=== PATIENT | male | born 1995 | race Caucasian/White ===

== ENCOUNTER 2020-09-03 06:39 | Emergency (ER) | payer BC, SELFPAY ==
[2020-09-03 06:44] VITALS: PULSE 89; RESP 16; TEMP 37.4; O2SAT 98; BMI 32.5
--- NOTE | 2020-09-03 06:51 | W.ED.COVID ---
HPI - COVID General: Chief Complaint: COVID symptoms Stated Complaint: Slight SOB/Body Aches/Headache/Wants to be Tested Time Seen by Provider: 09/03/20 06:45 Source: patient Mode of arrival: ambulatory Limitations: no limitations Triage information: Has fever, cough or shortness of breath. 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 He has been exposed to Covid by coworkers and patients. He is concerned he may have Covid. He has no hypoxia. Denies any vomiting or diarrhea. COVID 19 common symptoms: positive chills and body aches; negative fever(s), dyspnea, headache(s), throat pain, nausea, vomiting or diarrhea COVID 19 other sytmptoms: negative chest pain COVID Results: No Data to Display Review of Systems Const: Reports: chills and body aches; Denies: fever(s) or change in appetite Eyes: Denies: blurry vision or eye discomfort ENMT: Denies: throat pain or dental pain Card: Denies: chest pain Resp: Denies: dyspnea GI: Denies: abdominal pain, nausea, vomiting or diarrhea : Denies: dysuria Musc: Denies: neck pain or back pain Skin/Breast: Denies: rash Neuro: Denies: headache(s) Psych: Denies: depression James/Lymph: Denies: easy bruising All/Imm: Denies: urticaria Physical Exam Const: COMMON NORMALS: no acute distress, patient oriented x3 and healthy appearing HENMT: COMMON NORMALS: normocephalic and atraumatic HEAD & SCALP: normocephalic and atraumatic Eye: COMMON NORMALS: Equal, round and reactive pupils present and EOMs intact bilaterally PUPIL: Yes Equal, round and reactive pupils present Neck/C-Spine: COMMON NORMALS: full ROM and supple Chest: COMMONS NORMALS: normal inspection of the chest and normal palpation of entire chest wall Resp: COMMON NORMALS: normal respiratory effort, No retractions, No use of accessory muscles and clear to auscultation bilaterally AUSCULTATION: clear to auscultation bilaterally Cardio: COMMON NORMALS: regular rate, regular rhythm and No murmurs present (Cardio) RATE: regular rate RHYTHM: regular rhythm GI: COMMON NORMALS: Normal to inspection, nondistended, normoactive bowel sounds present, Soft to palpation, non-tender and no masses PALPATION: Yes Soft to palpation Extremity: COMMON NORMALS: normal to inspection and full ROM Neuro: COMMON NORMALS: patient oriented x3, moves all extremities and no focal motor deficits Psych: COMMON NORMALS: mental status grossly normal, Normal thought process present and cooperative THOUGHT PROCESS: Normal thought process present Skin: COMMON NORMALS: no rashes or lesions noted and no wounds GENERAL SKIN EXAM: no rashes or lesions noted Course Vital Signs: Vital signs: Vital Signs Temperature 99.4 F 09/03/20 06:44 Pulse Rate 89 09/03/20 06:44 Respiratory Rate 16 09/03/20 06:44 Pulse Oximetry 98 09/03/20 06:44 MDM - COVID MDM Narrative: Medical decision making narrative: Patient presents with cough fever body aches. 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 We will do a PTC. Is stable for discharge and is to quarantine until he has results. COVID Results: No Data to Display Discharge Plan Discharge Patient Disposition: Home Clinical Impression: Suspected severe acute respiratory syndrome coronavirus 2 (SARS-CoV-2) infection, Suspected 2019-nCoV infection Condition: Stable Discharge Orders: Discharge ED (Routine); Ordered 09/03/20 Ordered By: Thalia Garcia Referrals: Dyllan Olson MD [Primary Care Provider] - Discharge Diet: Advance as tolerated Discharge Activity: Resume usual activity Patient Instructions: Upper Respiratory Infection (ED) Coding Level of Care Code ED [employer] for Ciera Garcia
[2020-09-03 07:03] VITALS: PULSE 86; RESP 16; O2SAT 99
[2020-09-07 16:30] LABS: Coronavirus Lab Test PTC Negative
== END 2020-09-03 07:05 | disposition home or self-care (01) ==
LOC: ER 06:59
PROVIDERS: Emergency Provider Emergency Medicine; PCP Family Medicine
DX: Z20.828 Contact with and (suspected) exposure to other viral communicable diseases (principal)
CPT/HCPCS: 12345; 87635; 99281

== ENCOUNTER 2023-11-22 13:30 | Outpatient (CLI) | payer OTHER, SELFPAY ==
--- NOTE | 2023-11-22 13:37 | CT_ITS ---
WS: [id number] CT chest w con* [id number] HISTORY: PNEUMONIA TECHNIQUE: Axial imaging performed through the thorax. Coronal and sagittal reformats are submitted. All CT scans at [facility] use at least one of these dose optimization techniques: automated exposure control; mA and/or kV adjustment per patient size (includes targeted exams where dose is mat ched to clinical indication); or iterative reconstruction. CONTRAST: Omnipaque 350; 100 mL IV. DLP: 613.90 mGy.cm COMPARISON: None available. Lungs and central airway: Normal. Pleura: Normal. No pleural effusion. Heart and pericardium: Normal size heart with no pericardial effusion. Mediastinum and isidro: RIGHT suprahilar lymph node measures 10.7 mm. There are a few additional small lymph nodes. There is a soft tissue mass in the anterior mediastinum abutting the aorta and pulmonary artery. This is the most typical appearance for thymic tissue. It at this age thymic tissue has usua lly resolved. Transverse diameter of the soft tissue mass is 3.1 cm x 2.4 cm anterior posterior. Thym ic tissue extends over a length of 4.6 cm. Vessels: Artifact of the pulmonary artery. Normal size aorta. Chest wall and lower neck: No soft tissue masses. Upper abdomen: Normal. Osseous structures: No destructive process. IMPRESSION: 1. No pneumonia. 2. Prevascular, anterior mediastinal mass measures 3.1 x 2.4 cm and extends over a length of 4.6 cm. 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 This may be residual normal thymic tissue or rebound thymus. This is larger than expected for patient of this age and slightly more lobulated. No additional abnormali ties identified. Recommend follow-up chest CT in 3 months with IV contrast. PET/CT would provide shayla tional information also concerning the thymus. 3. Indeterminate RIGHT hilar lymph node 10.7 mm.
[2023-11-22] MEDS: iohexol 350 mg/mL 100 mL Btl IV (13:56)
== END 2023-11-22 13:31 | disposition home or self-care (01) ==
LOC: RAD 13:30
PROVIDERS: Visit Provider Family Medicine
DX: R22.2 Localized swelling, mass and lump, trunk (principal)
CPT/HCPCS: 71260; Q9967

== ENCOUNTER 2024-03-14 14:46 | Outpatient (CLI) | payer OTHER, SELFPAY ==
--- NOTE | 2024-03-14 14:50 | CT_ITS ---
WS: [id number] CT chest w con* [id number] HISTORY: MEDIASTINAL MASS TECHNIQUE: Axial imaging performed through the thorax. Coronal and sagittal reformats are submitted. All CT scans at [facility] use at least one of these dose optimization techniques: automated exposure control; mA and/or kV adjustment per patient size (includes targeted exams where dose is mat ched to clinical indication); or iterative reconstruction. CONTRAST: Omnipaque 350; 100 mL IV. DLP: 644.34 mGy.cm COMPARISON: 11/22/2023 Lungs and central airway: Lungs are clear and well aerated. No pulmonary nodule or pneumonia. Pleura: Normal. No pleural effusion. Heart and pericardium: Normal size heart with no pericardial effusion. Mediastinum and isidro: Reidentified is the anterior mediastinal mass which is conforming to the space. Mass is triangular shaped measuring 2.8 x 2.2 cm and extends over a length of 4.8 cm. Similar in my earance to the prior study. No increase in size. This is most consistent with thymic tissue. No addit ional abnormalities. There is no lymphadenopathy. Vessels: Normal size aortic and pulmonary artery. No coronary artery calcifications. Chest wall and lower neck: No soft tissue masses. Upper abdomen: Normal. Osseous structures: No destructive process. CT/CT chest w con* [id number] IMPRESSION: 1. Stable previous vascular anterior mediastinal mass measuring 2.8 x 2.2 x 4. 8 cm. Not significantly increased in size since the prior study. This is most c onsistent with normal thymic tissue. 2. No mediastinal or hilar adenopathy.
== END 2024-03-14 14:47 | disposition home or self-care (01) ==
LOC: RAD 14:48
PROVIDERS: PCP Family Medicine; Visit Provider Family Medicine
DX: R22.2 Localized swelling, mass and lump, trunk (principal)
CPT/HCPCS: 71260